=== PATIENT | female | born 1985 | race Caucasian/White ===

== ENCOUNTER 2018-03-11 17:30 | Inpatient (IN) | payer OTHER ==
[~2018-03-11] VITALS: Ht 157.5 cm; Wt 89.4 kg
[2018-03-11] MEDS: LR 1,000 ML IV SCH (11:32)
[2018-03-11] MEDS: MISOPROSTOL 100 MCG TABLET (CYTOTEC) VG SCH (17:40)
[2018-03-11] MEDS ORDERED: OXYTOCIN/0.9 % SODIUM CHLORIDE 1,000 ML IV SCH (17:40)
[2018-03-11] MEDS ORDERED: MISOPROSTOL 100 MCG TABLET (CYTOTEC) ONE (17:42)
[2018-03-11] MEDS ORDERED: ONDANSETRON HCL 4 MG/2 ML VIAL IVP PRN (17:45)
[2018-03-11 18:41] LABS: BASOPHILS # (AUTO) 0.1 K/uL (0.0-0.2); BASOPHILS % (AUTO) 0.7 % (0.0-2.0); EOSINOPHILS # (AUTO) 0.1 K/uL (0.0-0.4); EOSINOPHILS % (AUTO) 0.4 % (0.0-4.0); HEMATOCRIT 37.9 % (36-48); HEMOGLOBIN 12.9 g/dL (12.0-16.0); LYMPHOCYTES # (AUTO) 2.4 K/uL (1.0-5.5); LYMPHOCYTES % (AUTO) 17.7 % (20.5-51.5); MEAN CORPUSCULAR HEMOGLOBIN 29 pg (27-31); MEAN CORPUSCULAR HGB CONC 34 % (32-36); MEAN CORPUSCULAR VOLUME 85 fL (79.0-98.0); MONOCYTES # (AUTO) 0.8 K/uL (0.0-1.0); MONOCYTES % (AUTO) 5.7 % (1.7-9.3); NEUTROPHILS # (AUTO) 10.3 K/uL (1.8-7.7); NEUTROPHILS % (AUTO) 75.5 % (40.0-70.0); PLATELET COUNT (AUTO) 316 K/uL (130-430); RED BLOOD CELL COUNT(AUTO) 4.46 MIL/uL (4.2-6.2); RED CELL DISTRIBUTION WIDTH 14.4 % (9.0-15.0); WHITE BLOOD COUNT (AUTO) 13.7 K/uL (4.8-10.8)
[2018-03-11] MEDS: MEPERIDINE HCL/PF 50 MG/ML AMP IVP PRN (18:58)
[2018-03-11] MEDS ORDERED: MISOPROSTOL 100 MCG TABLET (CYTOTEC) VG ONE (19:00)
[2018-03-11 19:11] VITALS: BP_SYST 128
[2018-03-11] MEDS ORDERED: ROPIVACAINE 0.2% 100 ML ONE (21:22)
[2018-03-11] MEDS ORDERED: fentaNYL CITRATE/PF 100 MCG/2 ML AMP ONE (21:22)
[2018-03-11] MEDS ORDERED: LR 500 ML IV ONE (21:59)
[2018-03-11] MEDS ORDERED: FENT2mCg/mL-ROPIVA0.2%/NS EPID 150 ML EP SCH (22:00)
[2018-03-11] MEDS: KETOROLAC TROMETHAMINE 30 MG VIAL IVP ONE (23:32)
[2018-03-12] MEDS ORDERED: OXYCODONE/ACETAMINOPHEN 5-325 TABLET PO PRN (07:30)
[2018-03-12] MEDS: ACETAMINOPHEN 325 MG TABLET PO PRN (09:18)
== END 2018-03-12 14:30 | disposition home or self-care (01) | DRG 779 ==
LOC: SPU 17:30
PROVIDERS: ADMIT Obstetrics & Gynecology; ATTEND Obstetrics & Gynecology
DX: O02.1 Missed abortion (principal); O21.0 Mild hyperemesis gravidarum; Z37.1 Single stillbirth; Z3A.16 16 weeks gestation of pregnancy; Z88.8 Allergy status to other drugs, medicaments and biological substances; Z91.040 Latex allergy status
CPT/HCPCS: 36415; 81002-TC; 85025; 86592; 86886; 86900; 86901; 88300; 88305; 88307; 94760; J1885; J2175; J2795; J3010; J7120